=== PATIENT | male | born 1960 | race African-American/Black ===

== ENCOUNTER → 2021-01-26 01:59 | Outpatient (CLI) | payer OTHER, SELFPAY ==
[2021-01-26 17:52] LABS: SARS-CoV-2 RNA PCR Negative
== END ==
PROVIDERS: PCP Family Medicine; Visit Provider Family Medicine
DX: R68.89 Other general symptoms and signs (principal); Z20.822 Contact with and (suspected) exposure to COVID-19
CPT/HCPCS: C9803; U0003; U0005

== ENCOUNTER 2021-08-15 17:11 | Outpatient (CLI) | payer OTHER, SELFPAY ==
[2021-08-15 17:44] LABS: Hematocrit 41.9 % (42.0-52.0); Hemoglobin 13.1 g/dL (14.0-18.0); Immature Reticulocyte Fraction 14.7 % (3.0-15.9); Mean Corpuscular HGB Conc 31.3 g/dl (32-36); Mean Corpuscular Hemoglobin 27.3 pg (26-34); Mean Corpuscular Volume 87.5 fl (80-100); Mean Platelet Volume 10.7 fl (7.4-10.4); Platelet Count Result 185 k/mm3 (150-375); Red Blood Count 4.79 M/mm3 (4.6-6.20); Red Cell Distribution Width 15.4 % (11.5-14.5); Reticulocyte Hemoglobin Conten 31.3 pg (28.2-35.7); Reticulocytes Absolute 0.09 B/L (32.2-175.7); White Blood Count 8.7 K/mm3 (4.5-10.0)
[2021-08-15 21:20] LABS: Alanine Aminotransferase 35 U/L (4-50); Albumin Level 4.3 g/dL (3.5-5.1); Alkaline Phosphatase 180 U/L (38-126); Anion Gap 5 mmol/L (8-16); Aspartate Amino Transferase 40 U/L (17-59); Bilirubin,Total 0.6 mg/dL (0.2-1.3); Blood Urea Nitrogen 10 mg/dL (9-20); Calcium 9.2 mg/dL (8.4-10.2); Carbon Dioxide 25 mmol/L (22-30); Chloride 106 mmol/L (98-107); Cholesterol 150 mg/dL (0-200); Estimated Glomerular Filt Rate > 60; Glucose 107 mg/dL (65-110); HDL Direct 40 mg/dL; Iron 72 ug/dL (49-181); Lactate Dehydrogenase 392 U/L (313-618); Potassium 4.1 mmol/L (3.4-5.0); Sodium 136 mmol/L (137-145); Triglycerides 134 mg/dL (<150)
[2021-08-15 21:31] LABS: LDL Cholesterol Direct 82 mg/dL; Transferrin 304 mg/dL (206-381)
[2021-08-15 21:32] LABS: Percent Iron Saturation 18 % (20-50)
[2021-08-15 21:51] LABS: Prostate Specific Antigen 0.4 ng/mL (< OR = 4.0)
[2021-08-15 22:27] LABS: Folic Acid 11.6 ng/mL (2.76->20)
== END 2021-08-15 17:12 | disposition home or self-care (01) ==
LOC: ANHLAB 17:12
PROVIDERS: PCP Family Medicine; Visit Provider Nurse Practitioner Adult Health
DX: Z12.5 Encounter for screening for malignant neoplasm of prostate (principal); I11.0 Hypertensive heart disease with heart failure; D64.9 Anemia, unspecified
CPT/HCPCS: 36415; 80053; 80061; 82607; 82728; 82746; 83540; 83550; 83615; 84153; 84466; 85027; 85046; G0103

== ENCOUNTER 2023-06-30 16:26 | Emergency (ER) | payer MEDICARE, MEDICAID, SELFPAY ==
--- NOTE | ~2023-06-30 | CT_ITS ---
EXAMINATION: CT abdomen pelvis w con DATE: 06/30/2023 19:48 INDICATION: Right abdominal injury. Hernia. TECHNIQUE: Computed tomography (CT) of the abdomen and pelvis was performed with 100 mL Omnipaque 350 intravenous contrast. Automated exposure control and iterative reconstruction technique were employe d. The dose-length product was 1400.18 mGy-cm. COMPARISON: CT abdomen 10/04/18 FINDINGS: The visualized portions of the lung bases demonstrate mild atelectasis. No pleural effusion . The heart size is normal. There are coronary artery calcifications. No pericardial effusion. There are cysts in the liver measuring up to 4.0 cm. There is a gallstone in the gallbladder, which is norm al in size. The spleen, pancreas, adrenal glands, and kidneys are normal. There is a large ventral he rnia containing small and large bowel, stomach, and liver. There are no dilated loops of bowel. There are changes of right hemicolectomy. There are no pathologically enlarged lymph nodes. There is no fr ee intraperitoneal fluid. There are embolization coils in right pelvis. There is mild thoracic and lianna mbar spondylosis. IMPRESSION: 1. Large ventral hernia containing small and large bowel, stomach, and liver. Reviewed, dictated and finalized at location E. CTOR CARD
--- NOTE | ~2023-06-30 | XR_ITS ---
EXAMINATION: 1. XR hand RT min 3V 2. XR wrist RT min 3V DATE: 06/30/2023 18:53 INDICATION: Right hand pain. Fall. TECHNIQUE: 3 views of right hand and 3 views of right wrist were obtained. COMPARISON: None. FINDINGS: RIGHT WRIST: Bone alignment is normal. There is a nondisplaced fracture of radial styloid. There is m ild osteoarthritis of first carpal metacarpal joint. RIGHT HAND: Bone alignment is normal. Again seen is a nondisplaced fracture of radial styloid. There is mild osteoarthritis of second-fourth metacarpophalangeal joints and second, fourth, and fifth dist al interphalangeal joints. IMPRESSION: 1. Nondisplaced fracture of radial styloid. 2. Mild polyarticular osteoarthritis. Reviewed, dictated and finalized at location E. CONTROL MECH[employer]IC IMPRESSION: 1. Nondisplaced fracture of radial styloid. 2. Mild polyarticular osteoarthritis.
[2023-06-30 16:32] VITALS: BP 143/67; PULSE 64; RESP 16; TEMP 36.3; O2SAT 99
--- NOTE | 2023-06-30 18:27 | ED.GENADULT ---
HPI - General Adult General Chief complaint: Extremity Injury, Upper <Michi Singer PA-C - Last Filed: 06/30/23 18:35> Stated complaint: right hand swelling <Michi Singer PA-C - Last Filed: 06/30/23 18:35> Time Seen by Provider: 06/30/23 18:27 <Michi Singer PA-C - Last Filed: 06/30/23 18:35> Focused HPI: This is a 62-year-old male who presents to the ED with chief complaint of right hand pain and swelling after a fall that occurred 3 days ago.. He reports he landed on his right side and the side of his abdomen hurts as well. He has a hernia here and feels like he has worsening pain in the hernia ever since the fall. Denies any further sites of pain or injury. GENERAL: Well-appearing, well-nourished, and in no acute distress. HEAD: Normocephalic, atraumatic. CHEST: Clear to auscultation. No respiratory distress. HEART: Regular rate and rhythm. NEURO: Alert and oriented x3. Patient screened in triage and initial orders placed. Additional care and disposition to be based upon diagnostic testing and treatment. <Michi Singer PA-C - Last Filed: 06/30/23 18:35> Source: patient <Higinio Nilesh Valladares DO - Last Filed: 06/30/23 21:51> Limitations: no limitations <Higinio Valladares DO - Last Filed: 06/30/23 21:51> History of Present Illness HPI narrative: Patient is a 62-year-old male presents to the emergency department complaining of a fall. Patient states that early evening he slipped on ice and falling stomach and also hit his right arm and has not had pain in his right distal arm was initiated swelling the patient denies history of injuries to this right arm in the past. Patient denies any significant abdominal pain. Patient denies hitting his head or having loss of consciousness or use of blood thinners. Patient admits to a history of a large ventral hernia for which he is known to [facility] surgeons and is planning to have an operation performed in approximately 1 month however the mom lose weight 1st. Patient admits to normal urination and bowel movements has been ambulatory without difficulty. Patient denies any new numbness or weakness, vomiting, chest pain, difficulty breathing. Patient admits to some mild paresthesias in the tips of his right fingers intermittently. Patient history of some mild decreased range of motion of his right hand secondary to the pain. <Higinio Valladares DO - Last Filed: 06/30/23 21:51> Related Data Allergies/adverse reactions: Allergies Allergy/AdvReac Type Severity Reaction Status Date / Time propoxyphene Allergy Mild Unknown Verified 06/30/23 19:59 <Michi Singer PA-C - Last Filed: 06/30/23 18:35> Review of Systems Review of Systems: A 10 system review of systems was completed on the patient and is negative except for what is stated in the HPI. Nursing and ancillary documentation was reviewed. <Higinio Valladares DO - Last Filed: 06/30/23 21:51> [facility] Family History Family History: Family History (System 01/24/21 @ 10:43 by Camilla Cutler) Mother Acute myocardial infarction Family history of malignant neoplasm of breast Other Cerebrovascular accident Family history of cardiovascular disease Family history of coronary artery disease Family history of kidney disease Family history of malignant neoplasm Family history of type 2 diabetes mellitus <Michi Singer PA-C - Last Filed: 06/30/23 18:35> Social History Social History: Social History (System 01/24/21 @ 10:43 by Camilla Cutler) Smoking status: Current every day smoker Alcohol intake: current <Michi Singer PA-C - Last Filed: 06/30/23 18:35> Comments At time of signature, I have reviewed and agree with nursing past medical, surgical, social and family history unless otherwise noted. Please see the nursing chart for further information. There is no relevant family history pertinent to the presenting complaint. <Jamel
[2023-06-30 18:29] VITALS: BP 142/65; PULSE 68; RESP 18; O2SAT 100
[2023-06-30 19:38] LABS: Basophils Percent Auto 0.3 % (0.2-1.2); Eosinophils Absolute Auto 0.2 K/mm3 (0-0.3); Eosinophils Percent Auto 2.4 % (0-4.4); Hematocrit 38.9 % (42.0-52.0); Hemoglobin 11.9 g/dL (14.0-18.0); Immature Granulocyte Absolute 0.05 K/mm3 (0.00-0.031); Immature Granulocyte Percent A 0.7 % (0-0.5); Lymphocytes Absolute Auto 1.86 K/mm3 (0.9-3.2); Lymphocytes Percent Auto 24.6 % (18.3-44.2); Mean Corpuscular HGB Conc 30.6 g/dl (32-36); Mean Corpuscular Hemoglobin 27.1 pg (26-34); Mean Corpuscular Volume 88.6 fl (80-100); Mean Platelet Volume 11.7 fl (7.4-10.4); Monocytes Absolute Auto 0.6 K/mm3 (0.1-0.6); Monocytes Percent Auto 8.5 % (2.6-8.5); Neutrophils Absolute Auto 4.8 K/mm3 (1.3-6.7); Neutrophils Percent Auto 63.5 % (45.5-73.1); Platelet Count Result 181 k/mm3 (150-375); Red Blood Count 4.39 M/mm3 (4.6-6.20); Red Cell Distribution Width 14.7 % (11.5-14.5); White Blood Count 7.6 K/mm3 (4.5-10.0)
[2023-06-30 19:46] LABS: Estimated CRCL calculation 97 ml/min; Estimated Glomerular Filt Rate > 60
[2023-06-30 19:47] LABS: Anion Gap 6 mmol/L (8-16); Blood Urea Nitrogen 14 mg/dL (9-20); Calcium 9.1 mg/dL (8.4-10.2); Carbon Dioxide 29 mmol/L (22-30); Chloride 104 mmol/L (98-107); Estimated CRCL calculation 108 ml/min; Estimated Glomerular Filt Rate > 60; Glucose 105 mg/dL (65-110); Potassium 3.9 mmol/L (3.4-5.0); Sodium 139 mmol/L (137-145)
[2023-06-30] MEDS: ACETAMINOPHEN 500 MG TABLET 1000 MG PO (20:52)
[2023-06-30 22:12] VITALS: BP 143/87; PULSE 86; RESP 16; O2SAT 97
== END 2023-06-30 22:14 | disposition home or self-care (01) ==
LOC: ANHED 20:58
PROVIDERS: Physician Assistant; Emergency Provider Student in an Organized Health Care Education/Training Program; PCP Family Medicine
DX: S52.514A Nondisplaced fracture of right radial styloid process, initial encounter for closed fracture (principal); K43.9 Ventral hernia without obstruction or gangrene; F17.200 Nicotine dependence, unspecified, uncomplicated; M19.041 Primary osteoarthritis, right hand; M19.031 Primary osteoarthritis, right wrist; W00.0XXA Fall on same level due to ice and snow, initial encounter
CPT/HCPCS: 29125; 36415; 73110; 73130; 74177; 80048; 85025; 99284; A4565; A9270; Q9967

== ENCOUNTER 2024-01-18 13:47 | Emergency (ER) | payer MEDICARE, MEDICAID, SELFPAY ==
[2024-01-18 13:52] VITALS: BP 144/74; PULSE 94; RESP 16; TEMP 36.6; O2SAT 100
--- NOTE | 2024-01-18 17:01 | ED.GENADULT ---
HPI - General Adult General Chief complaint: Allergic Reaction Stated complaint: bee sting Time Seen by Provider: 01/18/24 15:56 History of Present Illness HPI narrative: 63-year-old male presenting to the emergency department for evaluation for allergic reaction to bee stings. Patient was stung on the right thigh and right hand yesterday. Patient denies any current chest pain or shortness of breath. Patient states he is having itching and swelling of the dorsum of the hand and medial right thigh. Patient does have history of HIV. Related Data Allergies Allergy/AdvReac Type Severity Reaction Status Date / Time propoxyphene Allergy Mild Unknown Verified 01/18/24 13:49 Review of Systems Review of Systems: All systems reviewed & are unremarkable except as noted in HPI and below PMFSH Past Medical History Medical History Abdominal hernia History of heart attack History of stroke Surgical History Surgical History History of hernia repair Family History Family History Mother Acute myocardial infarction Family history of malignant neoplasm of breast Other Cerebrovascular accident Family history of cardiovascular disease Family history of coronary artery disease Family history of kidney disease Family history of malignant neoplasm Family history of type 2 diabetes mellitus Social History Social History (Updated 08/11/23 @ 12:46 by Ernestine Millard CMA) Smoking status: Current every day smoker Tobacco type: cigarettes Additional smoking assessment comments: currently smokes about 7 cigarettes per day Alcohol intake: former Substance use type: does not use Do You Feel Safe in your Home?: Yes Lack of Transportation: No Current Housing: I Have Housing Difficulty Paying Gas/Electric Bills: YES Difficulty Paying for Meds: No Currently Unemployed: YES Education: High School Diploma/GED Difficulty w/ Childcare or Family Care: No Living arrangements: with family Occupation/Education: unemployed Additional occupation/education comments: disable Exam Narrative: APPEARANCE: Well appearing, no pain, no distress, well-nourished. HEAD: normocephalic, atraumatic. EYES: PERRLA/EOMI, conjunctivae clear. NOSE: Normal no drainage EARS:TMS clear with good light reflex. THROAT: Pharynx clear, no exudate. NECK: Supple. No adenopathy, no masses. RESPIRATORY: Airway patent, respirations nonlabored. Clear to auscultation bilaterally, no rales, rhonchi, wheezing. CARDIOVASCULAR: Regular rate and rhythm without murmurs rubs or gallops. ABDOMINAL: Soft, nontender, nondistended, normal bowel sounds MUSCULOSKELETAL: Moves all extremities. Strength/ROM intact, No edema, No calf tenderness. NEURO: Alert. Cranial nerves II through XII intact. Good gait. Good coordination SKIN: Right thigh erythema and right hand erythema Course Vital Signs Vital signs: Vital Signs Temperature 97.9 F 01/18/24 13:52 Pulse Rate 94 01/18/24 13:52 Respiratory Rate 16 01/18/24 13:52 Blood Pressure 144/74 H 01/18/24 13:52 Pulse Oximetry 100 01/18/24 13:52 Oxygen Delivery Room Air 01/18/24 13:52 Temperature 98.6 F 01/18/24 17:30 Pulse Rate 68 01/18/24 17:30 Respiratory Rate 18 01/18/24 17:30 Blood Pressure 122/80 01/18/24 17:30 Pulse Oximetry 98 01/18/24 17:30 Oxygen Delivery Room Air 01/18/24 15:30 Medical Decision Making MDM Narrative Medical decision making narrative: 63-year-old male present to the emergency department for evaluation for swelling associated with bee/wasp stings yesterday. Low concern for cellulitis or infectious etiology. Does appear to be allergic in nature. Patient was started on prednisone the emergency department and also started on Benadryl. Patient was
[2024-01-18] MEDS: diphenhydrAMINE HCl CAP 25 MG CAPSULE PO (17:21)
[2024-01-18] MEDS: predniSONE 20 MG TABLET 40 MG PO (17:21)
[2024-01-18 17:30] VITALS: BP 122/80; PULSE 68; RESP 18; TEMP 37; O2SAT 98
== END 2024-01-18 17:31 | disposition home or self-care (01) ==
PROVIDERS: Emergency Provider Emergency Medicine; PCP Family Medicine
DX: T63.441A Toxic effect of venom of bees, accidental (unintentional), initial encounter (principal); L29.9 Pruritus, unspecified; I25.2 Old myocardial infarction; Z86.73 Personal history of transient ischemic attack (TIA), and cerebral infarction without residual deficits; F17.210 Nicotine dependence, cigarettes, uncomplicated
CPT/HCPCS: 99283; A9270; J7512

== ENCOUNTER 2025-03-22 14:32 | Outpatient (CLI) | payer MEDICARE, MEDICAID, SELFPAY ==
--- NOTE | ~2025-03-22 | US_ITS ---
EXAMINATION: US thyroid DATE: 03/22/2025 15:14 INDICATION: Nontoxic single thyroid nodule. TECHNIQUE: Multiple ultrasound images of the thyroid were obtained. COMPARISON: None. FINDINGS: The right thyroid lobe measures 4.5 x 1.6 x 1.4 cm. The left thyroid lobe measures 5.4 x 1.9 x 1.7 cm. In the right thyroid lobe, there is a 6 mm solid, hypoechoic, wider than tall nodule with smooth margin without echogenic foci (TI-RADS TR4). In the left thyroid lobe, there is a 2 mm nodule. IMPRESSION: 1. Small thyroid nodules, likely not clinically significant. No follow-up is needed. Reviewed, dictated and finalized at location E. IMPRESSION: 1. Small thyroid nodules, likely not clinically significant. No follow-up is ne eded.
== END 2025-03-22 14:33 | disposition home or self-care (01) ==
LOC: MICIMG 14:34
PROVIDERS: PCP Family Medicine; Visit Provider Nurse Practitioner Family
DX: E04.2 Nontoxic multinodular goiter (principal)
CPT/HCPCS: 76536